=== PATIENT | female | born 1980 | race Caucasian/White ===

== ENCOUNTER 2018-11-16 18:35 | Inpatient (IN) ==
[2018-11-16] MEDS ORDERED: NS 1,000 ML, NS 1,000 ML IV ONE ×2 (19:34)
[2018-11-16] MEDS: NS 1,000 ML IV SCH ×2 (20:07→22:42)
[2018-11-16 20:11] LABS: BASO# 0.07 X1000 (0.0-0.2); BASO% 0.7 % (0.0-0.8); EOS# 0.46 X1000 (0.0-0.7); EOS% 4.3 % (0.0-10.0); HEMATOCRIT 42.5 % (37.0-47.0); HEMOGLOBIN 13.9 g/dL (12.0-16.0); IMM GRAN% 0.9 % (0.0-0.5); LYMPH# 2.66 X1000 (1.2-3.4); LYMPH% 25.1 % (20.5-51.1); MCH 29.6 PG (27-31); MCHC 32.7 g/dL (33-37); MCV 90.6 FL (81-99); MONO# 1.05 X1000 (0.11-0.59); MONO% 9.9 % (1.7-9.3); MPV 10.5 FL (7.4-10.4); NEUT# 6.26 X1000 (1.4-6.5); NEUT% 59.1 % (42.2-75.2); PLT 382 X1000 (130-400); RBC 4.69 XMIL (4.2-5.4); RDW 16.5 % (11.5-14.5)
[2018-11-16 20:31] LABS: ESTIMATED GFR > 60
[2018-11-16 20:34] LABS: AGAP 20; ALB/GLOB RATIO 1.1; ALBUMIN 3.7 g/dL (3.5-5.0); ALKALINE PHOSPHATASE 51 U/L (32-104); BUN 2 mg/dL (8-22); CALCIUM 9.5 mg/dL (8.8-10.2); CHLORIDE 102 mmol/L (98-107); COSMO 267; CREATININE 0.7 mg/dL (0.5-0.9); GLUCOSE 103 mg/dL (70-104); GOT 94 U/L (10-30); GPT 50 U/L (10-36); LIPASE 16 U/L (13-60); SODIUM 135 mmol/L (136-145); TCO2 13 mmol/L (25-35); TOTAL BILIRUBIN 0.61 mg/dL (0.20-1.00)
--- NOTE | 2018-11-16 21:28 | Diag Imaging Result Doc PS360 ---
EXAM: CT ABD/PELVIS W/IV CONT ONLY 11/16/2018 HISTORY: colitis TECHNIQUE: This exam was performed using automated exposure control, adjustment of mA or kV according to patient size, and/or use of iterative reconstruction technique. COMMENT: There is no evidence of acute disease in the visualized portion of the chest. There is hypodensity of the liver consistent with fatty change and/or cirrhosis. The spleen is enlarged measuring over 15.3 cm in AP dimension. The adrenal glands are within normal limits. The pancreas is unremarkable. The kidneys are without evidence of hydronephrosis or mass. There is no evidence of abdominal aortic aneurysm. There are some retroperitoneal nodes which are enlarged, one anterior to the aorta on image 62 measures over 15 mm and one aortocaval node present on image 67 measures over 13 mm. There is pericolic inflammation with mucosal thickening present in the transverse and ascending colon. This includes the splenic flexure. The small bowel is not distended. Pelvis: The appendix is not enlarged. The rectosigmoid colon is unremarkable. There has been hysterectomy. There is an apparent left ovarian cyst measuring almost 13 mm. There is no evidence of significant free fluid. The urinary bladder is unremarkable. There is a bone island in S1. There are degenerative disc changes with vacuum disc phenomenon at L5-S1 and bilateral spondylolysis at L5. No acute bony abnormalities are present. IMPRESSION: 1. Hepatic steatosis plus minus cirrhosis with splenomegaly. 2. Colitis, primarily involving the ascending and transverse colon. 3. Retroperitoneal adenopathy. 4. Left ovarian cyst. Electronically signed by Brody Bruce 11/16/2018 9:26 PM
[2018-11-16 22:54] LABS: URINE SOURCE CLEAN CATCH
[2018-11-16 22:58] LABS: BILIRUBIN URINE NEGATIVE (NEGATIVE); BLOOD URINE NEGATIVE (NEGATIVE); COLOR YELLOW; GLUCOSE URINE NEGATIVE (NEGATIVE); KETONE URINE >150 mg/dL (NEGATIVE); LEUKOCYTES URINE NEGATIVE (NEGATIVE); NITRITE URINE NEGATIVE (NEGATIVE); PH URINE 5.5; PROTEIN URINE 30 mg/dL (NEGATIVE); SP GRAVITY URINE 1.042; TURBIDITY URINE CLEAR (CLEAR); UR EPITHELIAL CELLS >10 /HPF (<10); URINE BACTERIA 2+ /HPF; URINE RBC <10 /HPF (<10); URINE WBC <10 /HPF (<10); UROBILINOGEN URINE NORMAL (NORMAL)
[2018-11-16] MEDS ORDERED: POTASSIUM CHLORIDE 20% LIQUID PO ONE (23:25)
[2018-11-17 00:15] LABS: ALLEN TEST YES; BE -17.1 mmoll (-3.0-3.0); BLOOD TYPE ARTERIAL; HCO3-(ACT) 11.6 mmoll (20.0-26.0); METHB 1.1 % (0.0-1.5); O2(CT) 17.2 mL/dL (15.0-23.0); O2HB 96.1 % (95.0-99.0); PCO2(98.6) 26 mmHg (35-45); PO2(98.6) 104 mmHg (60-100); SAMPLE BLOOD; SAO2 99.2 % (95.0-100.0); THB 12.6 g/dL (11.5-17.4)
[2018-11-17 00:17] LABS: MODALITY ROOM AIR; pH(98.6) 7.18 (7.35-7.45)
[2018-11-17] MEDS ORDERED: NS 1,000 ML IV ONE (01:17)
[2018-11-17] MEDS ORDERED: ZOFRAN IV ONE (01:21)
[2018-11-17] MEDS ORDERED: NS + KCL 20 MEQ 1,000 ML IV SCH (01:30)
[2018-11-17 01:46] LABS: MAGNESIUM 1.7 mg/dL (1.5-2.7); PHOSPHORUS 3.5 mg/dL (2.7-4.5)
[2018-11-17] MEDS ORDERED: TYLENOL PO PRN (02:42)
[2018-11-17] MEDS ORDERED: SOLU-MEDROL IV SCH (02:42)
--- NOTE | 2018-11-17 02:47 | HISTORY AND PHYSICAL ---
REASON FOR ADMISSION: Intractable nausea and vomiting apparently for 4 weeks. HISTORY OF PRESENT ILLNESS: Ms. Cornelia Boo is a 38-year-old woman with a past medical history of recurrent melanoma status post excision of the right arm x2. He has been off on Opdivo. She reports that for the last 2 months since she has been on Opdivo she has been having vomiting and diarrhea. Her last dose as I stated earlier was 4 weeks ago and since then her diarrhea and vomiting has gotten worse. She has been prescribed antibiotics and antiemetics tablet by Dr. Fong, but she has been unable to keep any of these down. Shesaw Dr. Light a week ago who did a colonoscopy and confirmed she had colitis. He to prescribed her oral medications and he says for the last 1 week she has not eaten anything nor kept anything down. She vomits about anywhere from 2 to 7 times a day regardless of whether she eats and also has loose stools which a couple of times have been darkish in color. She denies any overt abdominal pain, fever or chills however. No arthralgia or rash. No cardiorespiratory complaints. She came today because she was profoundly weak and dizzy. She has not started or changed any new medications. REVIEW OF SYSTEMS: A 12-system review was done and positive findings per HPI. ALLERGIES: Combivent, Pepto-Bismol and penicillins. HOME MEDICATIONS: She takes [place] 7.5 p.r.n. in the morning. SOCIAL HISTORY: Does not actively drink or smoke at this time. FAMILY HISTORY: Notable for lung cancer, pancreatic cancer, heart disease and diabetes. SURGICAL HISTORY: She has had 2 right upper extremity excisions for recurrent melanoma. She has had a , hysterectomy and also had a skin graft for the aforementioned excised area. LABORATORY DATA: White count 10,000, H H 13 and 42, platelets 382,000. Essentially unremarkable differential. Sodium 135, potassium 3.0, bicarbonate 13, anion gap is 20, BUN 2. Creatinine is 0.8, AST is 94, ALT 90, lipase and lactase are normal. Urinalysis, specific gravity 1.042, urine protein is 13, ketones greater than 150, with 2+ bacteria but greater than 10 epithelial cells. Blood gas, pH 7.17, pCO2 is 26, PO2 is 104, on room air. Abdominal CT showed hepatic steatosis plus or minus cirrhosis with splenomegaly, colitis primarily involving the ascending and transverse colon. Retroperitoneal adenopathy. Left ovarian cyst. PHYSICAL EXAMINATION: VITAL SIGNS: Blood pressure 127/82, heart rate is 109, respiratory rate 25, temperature is 98.9 degrees. GENERAL: She is an obese young woman who is not in acute distress. She is A and O x3. Normal mood and affect. HEENT: Head is normocephalic and atraumatic. Eyes: PERRLA. EOMI. She is anicteric. Not pale. Exam is grossly unremarkable except for mild xerostomia. No exudates or erythema. No sinus cyanosis. NECK: Short and thick. No JVD or carotid bruit. No thyromegaly. CHEST: Clear to auscultation with good air entry. CARDIOVASCULAR: First and second heart sounds heard. No gallops, murmurs or rubs. Rhythm is regular. ABDOMEN: Protuberant, soft, with mild epigastric tenderness but no rebound or guarding. Bowel sounds are surprisingly hypoactive. RECTAL: Deferred. EXTREMITIES: The patient has significantly diminished distal pulse volumes are symmetrical and radicular regular. No edema, clubbing or cyanosis. NEUEROLOGIC: No gross focal deficits. SKIN: Intact. No breakdown, lesions or erythema. MUSCULOSKELETAL: Exam is grossly normal. ASSESSMENT: 1. Immune mediated colitis causing intractable nausea, vomiting and diarrhea probably secondary to Opdivo. 2. Severe starvation ketoacidosis, metabolic anion gap acidosis. 3. Dehydration. 4. Hypokalemia. PLAN: The patient has been aggressively resuscitated of crystalloids, and subsequentlyintravenous fluids of potassium chloride. Hopefully this should correct the ketosis noted fromstarvation secondary to effects of colitis causing nausea and vomiting. We will start the patienton very low-dose steroids and empiric antibiotics and see if this can arrest symptoms. At thetime that I left the room the patient was now complaining of diffuse mild abdominal pain. ConsultDrArsenio Fong for further intervention,i.e.further intervention and management of presumed Opdivo-induced colitis. Check magnesium and phosphorus. cc: Daniel Ly MD [facility]
[2018-11-17] MEDS: LEVAQUIN 500 MG/D5W 500 MG/100 ML IVPB IV SCH (03:41)
[2018-11-17] MEDS: FLAGYL 500 MG/NS 500 MG/100 ML IVPB IV SCH ×4 (03:41→22:35)
[2018-11-17] MEDS: LOVENOX SUBQ SCH (03:42)
[2018-11-17] MEDS: NS + KCL 40 MEQ 1,000 ML IV SCH ×2 (03:45→16:37)
[2018-11-17] MEDS: ZOFRAN IV PRN ×3 (12:57→22:29)
[2018-11-17 15:58] LABS: AGAP 22; BUN 2 mg/dL (8-22); CALCIUM 9.8 mg/dL (8.8-10.2); CHLORIDE 109 mmol/L (98-107); COSMO 277; CREATININE 0.7 mg/dL (0.5-0.9); ESTIMATED GFR > 60; GLUCOSE 152 mg/dL (70-104); POTASSIUM 2.4 mmol/L (3.5-5.1); SODIUM 139 mmol/L (136-145); TCO2 8 mmol/L (25-35)
[2018-11-17] MEDS: SOLU-MEDROL IV SCH (16:37)
[2018-11-17] MEDS ORDERED: NS + KCL 40 MEQ 1,000 ML IV SCH (17:11)
[2018-11-17] MEDS: PROTONIX IV SCH (18:45)
--- NOTE | 2018-11-17 19:53 | HEMO/ONC CONSULTATION ---
DATE: 11/17/2018 REQUESTING PHYSICIAN: Hospitalist service. REASON FOR CONSULTATION: Consultation is for melanoma, patient known. HISTORY OF PRESENT ILLNESS: Ms. Boo is a 38-year-old, female who is known to us as we are currently treating her for recurrent metastatic melanoma. She is currently receiving Opdivo though she has not received Opdivo now in about 1 month. She has been having some nausea and vomiting really throughout her whole history at our clinic. She did have an episode of diarrhea while on Opdivo pretty early on in treatment, which was thought just to be related to her IBS. Opdivo was held and then we were able to resume without we further incident. A couple weeks ago, she was in the office complaining of increased nausea and vomiting as well as diarrhea that had been going on for a couple weeks prior to her presentation at that time. We held her Opdivo at that point. I gave her low-dose steroids with a Medrol Dosepak and Pepcid as we were unsure if she was just having again a flare-up of IBS considering she is having associated nausea and vomiting. We also sent her to Dr. Light who evaluated her and did a colonoscopy which showed that she had colitis. She is an office yesterday reporting that Dr. Light placed on antibiotics, but she was unable to keep any of the antibiotics down due to her nausea and vomiting. We gave her IV fluids and IV antiemetics and advised her to start her antibiotics when she got home. She did contact our office later and then reported that she is quite weak and we advised her to come to the emergency department. She has now been admitted to the hospital for further treatment. She is currently on IV fluids as well as IV steroid and antibiotics. PAST MEDICAL HISTORY: 1. Melanoma, metastatic and currently receiving Opdivo with last treatment given on 10/20/2018. 2. Hypothyroidism. 3. Migraines. 4. Hypertension. SURGICAL HISTORY: 1. 2000 and 2014. 2. Hysterectomy 2008. 3. Melanoma resections 2015 and 2018. SOCIAL HISTORY: Patient is and lives with her and children. They live in [place]. She is an every day smoker and denies any illicit drug or alcohol use at this time. FAMILY HISTORY: Positive for heart disease and also pancreatic cancer in her father. She also has an extensive history of other cancers on her maternal side including, lung, stomach, melanoma, colon and bone cancer. On her father's side, she has a family history of breast, ovarian, pancreatic, melanoma and lung cancers. REVIEW OF SYSTEMS: Twelve point review of systems has been completed negative except for was expressed in the HPI. PHYSICAL EXAMINATION: Vital Signs: Today temperature 98.4 degrees, heart rate 119, respirations 20, blood pressure 124/78, O2 saturation 98% on room air. General: This is a well-nourished well- developed female who appears acutely ill who is lying in the hospital bed. No one is at bedside. HEENT: Head normocephalic, atraumatic. Eyes: Pupils equal, round, reactive. Ears, nose, throat, neck, and mouth: Oral mucosa appears to be dry. Gross auditory acuity is intact. Cardiovascular: Tachycardia noted, but regular rhythm. Respiratory: Chest is clear. No respiratory effort. Abdomen: Soft, with diffuse tenderness. Positive bowel sounds noted. Musculoskeletal: No bony abnormalities. Extremities: Some trace bilateral extremity edema. Neurologic: Patient is alert and oriented. No focal motor deficits. LABS AND STUDIES: White blood cells 10.60 hemoglobin 13.9, hematocrit 42.5 platelet count 382,000. Sodium 139, potassium 2.4, chloride 109, CO2 8, BUN 2, creatinine 0.7, glucose 152, magnesium 1.7. Also CT of abdomen and pelvis done on 11/16/2018 shows colitis, primarily involving the ascending and transverse colon. Retroperitoneal adenopathy. Hepatic steatosis, plus or minus cirrhosis with splenomegaly. ASSESSMENT AND PLAN: 1. Metastatic melanoma. Opdivo is currently on hold and will continue to be on hold while the patient is in the hospital. Given her colitis, we may have to change treatments, but we will decide that once she is out and better as an outpatient in our office. 2. Colitis. Agree with treatment with antibiotics, IV fluids and we are going to adjust her IV steroids a little bit. She needs to be on about 1 mg/kg of prednisone or equivalent. 3. Nausea and vomiting. Continue IV antiemetics as needed. 4. Deep vein thrombosis prophylaxis. Agree with Lovenox q.24 hours. 5. With electrolyte abnormalities. Continue to correct per the primary team. We want to thank you for consulting us on Ms. Boo. We will continue to follow along while she is in the hospital adjust our treatment plan per her hospital course. Dictated by JOHNNY Barriga for Aurelio Rodriguez MD cc: Aurelio Rodriguez MD
[2018-11-18] MEDS: POTASSIUM CHLORIDE 40 MEQ in NS 1,000 ML IV SCH ×2 (00:50→05:33)
[2018-11-18] MEDS: LOVENOX SUBQ SCH (03:30)
[2018-11-18] MEDS: FLAGYL 500 MG/NS 500 MG/100 ML IVPB IV SCH ×5 (03:57→22:41)
[2018-11-18] MEDS: LEVAQUIN 500 MG/D5W 500 MG/100 ML IVPB IV SCH (03:57)
[2018-11-18] MEDS: SODIUM CHLORIDE 0.9% INJ SCH ×2 (05:33→17:58)
[2018-11-18] MEDS: PROTONIX IV SCH ×2 (05:33→17:58)
[2018-11-18 06:46] LABS: BASO# 0.03 X1000 (0.0-0.2); BASO% 0.2 % (0.0-0.8); EOS# 0.02 X1000 (0.0-0.7); EOS% 0.1 % (0.0-10.0); HEMATOCRIT 40.2 % (37.0-47.0); HEMOGLOBIN 12.8 g/dL (12.0-16.0); IMM GRAN% 2.9 % (0.0-0.5); LYMPH# 1.21 X1000 (1.2-3.4); LYMPH% 7.1 % (20.5-51.1); MCH 29.3 PG (27-31); MCHC 31.8 g/dL (33-37); MONO% 4.1 % (1.7-9.3); NEUT# 14.56 X1000 (1.4-6.5); NEUT% 85.6 % (42.2-75.2); PLT 380 X1000 (130-400); RBC 4.37 XMIL (4.2-5.4); RDW 16.8 % (11.5-14.5); WBC 17.02 X1000 (4.8-10.8)
[2018-11-18 07:04] LABS: AGAP 21; ALB/GLOB RATIO 1.4; ALKALINE PHOSPHATASE 49 U/L (32-104); BUN 2 mg/dL (8-22); CALCIUM 9.3 mg/dL (8.8-10.2); CHLORIDE 113 mmol/L (98-107); COSMO 285; CREATININE 0.7 mg/dL (0.5-0.9); ESTIMATED GFR > 60; GLUCOSE 199 mg/dL (70-104); GOT 37 U/L (10-30); GPT 33 U/L (10-36); MAGNESIUM 1.9 mg/dL (1.5-2.7); SODIUM 142 mmol/L (136-145); TCO2 8 mmol/L (25-35); TOTAL BILIRUBIN 0.37 mg/dL (0.20-1.00); TOTAL PROTEIN 6.9 g/dL (6.3-8.3)
[2018-11-18 07:06] LABS: POTASSIUM 2.1 mmol/L (3.5-5.1)
[2018-11-18] MEDS: SOLU-MEDROL IV SCH ×2 (10:10→16:09)
[2018-11-18] MEDS: POTASSIUM CHLORIDE 20 MEQ/SWI 20 MEQ/100 ML IVPB IV SCH ×2 (10:32→13:46)
[2018-11-18] MEDS: SODIUM BICARBONATE PO SCH ×2 (13:49→20:14)
--- NOTE | 2018-11-18 13:57 | PROGRESS NOTE ---
DATE: 11/18/2018 SUBJECTIVE: This patient is resting comfortably in bed. She is not complaining of too much belly pain. She is still having multiple bowel movements. The dose of the steroids has been adjusted by Hematology/Oncology Department. We will continue with antibiotics. Potassium level is low. We will replace the potassium. OBJECTIVE: Vital Signs: Temperature 98.6 degrees, pulse 116, respiratory rate 20, blood pressure 147/75, and oxygen saturation 99 on room air. HEENT: Head normocephalic. No trauma. PERRLA. Neck: Supple. No JVD. No masses. Central trachea. Chest: Clear to auscultation. No wheezing. No rales. Abdomen: Soft. Mild tenderness to palpation at the level of the periumbilical area. Positive bowel sounds. Slightly distended. Extremities: No edema. No clubbing. No cyanosis. Neurological: The patient is alert and oriented x3, a little bit sleepy today though. No focal deficits, but generalized weakness. LABORATORY: WBC 17, hemoglobin 12.8, hematocrit 40.2, and platelets 380,000. Sodium 142, potassium 2.1, chloride 113, bicarbonate 8, BUN 2, and creatinine 0.7. Glucose 199. Calcium 9.3. AST 37, ALT 33, alkaline phosphatase 49, and TSH 0.14. ASSESSMENT AND PLAN: 1. Immune mediated colitis causing intractable nausea, vomiting and diarrhea, likely secondary to Opdivo. This patient has been placed on steroids, antibiotics and she is getting IV fluids. We will continue with same management. Hematology/Oncology Department on board. 2. Severe starvation ketosis with anion gap metabolic acidosis. I will give her some sodium bicarb by mouth to see how she does. Bicarb level is low. 3. Dehydration resolved. Continue with the same management. 4. Severe hypokalemia. I will continue replacing the potassium. Magnesium level is within normal limits at 1.9. 5. Hypothyroidism. Her TSH level is low. I will get a new TSH level maybe in a couple of more days. cc: Vinnie Delatorre MD
--- NOTE | 2018-11-18 15:08 | HEMO/ONC PROGRESS NOTE ---
DATE: 11/18/2018 SUBJECTIVE: Ms. Cornelia Boo is in her hospital bed, in no acute distress. OBJECTIVE: Vital signs: Temperature 97.9 degrees, heart rate 60, respirations 18, blood pressure 150/72, O2 saturation 97% on room air. Cardiovascular: S1, S2 heard. No murmurs, gallops, rubs appreciated. Respiratory: Chest is clear to auscultation. Gastrointestinal: Abdomen is soft. Extremities: No edema. LABORATORY DATA AND STUDIES: White blood cells 17.02, hemoglobin 12.8. Sodium 142, potassium 2.1. ASSESSMENT: 1. Metastatic melanoma. Opdivo is currently on hold. 2. Colitis. The patient is on IV antibiotics as well as IV steroids. Seems to be improving. 3. Hypokalemia. Repletion per the primary team. We will sign off for the weekend and be available as needed. We will resume regular followup on Wednesday. Dictated by JOHNNY Barriga for Edita Fong MD cc: Edita Fong MD I have seen and examined the patient and agree with the above note which reflects my history, physical examination, assessment and plan. Edita MOREL
--- NOTE | 2018-11-18 15:12 | HEMO/ONC PROGRESS NOTE ---
DATE: 11/18/2018 INCOMPLETE REPORT-- DICTATION STARTS HERE. SUBJECTIVE: Ms. Boo is lying in her hospital bed. Her daughter is at bedside. She is in no acute distress. OBJECTIVE: Vital Signs: Temperature 97.9 degrees, heart rate 60, respirations 18, blood pressure 150/72, O2 saturation 97% on room air. CV: S1, S2 heard. No murmurs, gallops, rubs appreciated. Respiratory: Chest clear. Normal respiratory effort. Gastrointestinal: Abdomen is soft. Positive bowel sounds. Extremities: No edema. LABORATORY: White blood cells 17.02, hemoglobin 12.8, platelet count 380. Sodium 142, potassium 2.1, chloride 113, CO2 8. BUN 2, creatinine 0.7, glucose 199. ASSESSMENT/PLAN: 1. Metastatic melanoma. Patient has been receiving Opdivo. Her last dose... INCOMPLETE REPORT-- DICTATION ENDS HERE. Dictated by JOHNNY Barriga for Edita Fong MD cc: Edita Fong MD See rest of dicatation - separately transcribed. I have seen and examined the patient and agree with the above note which reflects my history, physical examination, assessment and plan. Edita Fong MD [facility]
[2018-11-18] MEDS: POTASSIUM CHLORIDE 40 MEQ in 1/2 NS 1,000 ML IV SCH (15:48)
[2018-11-18 19:09] LABS: AGAP 16; BUN 4 mg/dL (8-22); CALCIUM 9.2 mg/dL (8.8-10.2); CHLORIDE 116 mmol/L (98-107); COSMO 295; CREATININE 0.7 mg/dL (0.5-0.9); ESTIMATED GFR > 60; GLUCOSE 298 mg/dL (70-104); POTASSIUM 2.5 mmol/L (3.5-5.1); SODIUM 144 mmol/L (136-145); TCO2 12 mmol/L (25-35)
[2018-11-18] MEDS ORDERED: KLOR-CON PO ONE (19:54)
[2018-11-19 02:02] LABS: AGAP 16; BUN 6 mg/dL (8-22); CALCIUM 9.4 mg/dL (8.8-10.2); CHLORIDE 111 mmol/L (98-107); COSMO 289; CREATININE 0.7 mg/dL (0.5-0.9); ESTIMATED GFR > 60; GLUCOSE 256 mg/dL (70-104); POTASSIUM 2.9 mmol/L (3.5-5.1); SODIUM 142 mmol/L (136-145); TCO2 15 mmol/L (25-35)
[2018-11-19] MEDS: POTASSIUM CHLORIDE 40 MEQ in 1/2 NS 1,000 ML IV SCH (02:55)
[2018-11-19] MEDS: LEVAQUIN 500 MG/D5W 500 MG/100 ML IVPB IV SCH (02:55)
[2018-11-19] MEDS: LOVENOX SUBQ SCH (03:47)
[2018-11-19] MEDS: FLAGYL 500 MG/NS 500 MG/100 ML IVPB IV SCH ×2 (04:24→10:03)
[2018-11-19] MEDS: PROTONIX IV SCH (05:13)
[2018-11-19 07:47] LABS: BASO# 0.01 X1000 (0.0-0.2); BASO% 0.1 % (0.0-0.8); EOS# 0.01 X1000 (0.0-0.7); EOS% 0.1 % (0.0-10.0); HEMATOCRIT 36.1 % (37.0-47.0); HEMOGLOBIN 12.1 g/dL (12.0-16.0); IMM GRAN% 0.9 % (0.0-0.5); LYMPH# 0.79 X1000 (1.2-3.4); LYMPH% 6.9 % (20.5-51.1); MCH 29.7 PG (27-31); MCHC 33.5 g/dL (33-37); MCV 88.5 FL (81-99); MONO# 0.73 X1000 (0.11-0.59); MONO% 6.4 % (1.7-9.3); MPV 10.2 FL (7.4-10.4); NEUT# 9.75 X1000 (1.4-6.5); NEUT% 85.6 % (42.2-75.2); PLT 334 X1000 (130-400); RBC 4.08 XMIL (4.2-5.4); RDW 16.8 % (11.5-14.5); WBC 11.39 X1000 (4.8-10.8)
[2018-11-19 07:58] LABS: AGAP 16; ALB/GLOB RATIO 1.3; ALBUMIN 3.8 g/dL (3.5-5.0); ALKALINE PHOSPHATASE 53 U/L (32-104); BUN 7 mg/dL (8-22); CALCIUM 9.5 mg/dL (8.8-10.2); CHLORIDE 109 mmol/L (98-107); COSMO 288; CREATININE 0.7 mg/dL (0.5-0.9); ESTIMATED GFR > 60; GLUCOSE 225 mg/dL (70-104); GOT 19 U/L (10-30); GPT 25 U/L (10-36); MAGNESIUM 1.6 mg/dL (1.5-2.7); PHOSPHORUS 1.5 mg/dL (2.7-4.5); POTASSIUM 3.2 mmol/L (3.5-5.1); SODIUM 142 mmol/L (136-145); TCO2 17 mmol/L (25-35); TOTAL BILIRUBIN 0.41 mg/dL (0.20-1.00); TOTAL PROTEIN 6.7 g/dL (6.3-8.3)
[2018-11-19 08:48] LABS: BANDS 2 % (0-1); LYMPHS 7 % (21-51); MONO 5 % (1-9); SEGS 86 % (42-75)
[2018-11-19 08:49] LABS: POLYCHROM 1+
[2018-11-19] MEDS: SOLU-MEDROL IV SCH (10:08)
[2018-11-19] MEDS: SODIUM BICARBONATE PO SCH (10:10)
[2018-11-19 11:35] VITALS: BP 139/95
[2018-11-19] MEDS ORDERED: MAGNESIUM SULFATE 2 GM/S.W.I. 2 GM/50 ML IVPB IV ONE (12:00)
[2018-11-19] MEDS ORDERED: POTASSIUM PHOSPHATE 30 MMOL in NS 250 ML IV ONE (13:00)
--- NOTE | 2018-11-19 19:44 | DISCHARGE SUMMARY ---
ADMISSION DATE: 11/17/2018 DISCHARGE DATE: 11/19/2018 DISCHARGE DIAGNOSES: 1. Immune mediated colitis causing intractable nausea, vomiting and diarrhea, likely secondary to Opdivo. 2. Severe starvation ketosis with anion gap metabolic acidosis. 3. Dehydration, resolved. 4. Severe hypokalemia. 5. Hypothyroidism. This patient left AMA, I had an extensive conversation with the patient and the at the bedside but she decided to leave [facility] and follow up with Dr. Fong next week. PROCEDURES PERFORMED: Abdomen and pelvis CT scan dated 11/16/2018. Impression hepatic steatosis plus-minus cirrhosis with splenomegaly. Colitis primarily involving the ascending and transverse colon. Retroperitoneal adenopathy. Left ovarian cyst. HOSPITAL COURSE: A 38-year-old female with a past medical history of recurrent melanoma status post excision x2 on the right arm, she has been on Opdivo recently, she reported that for the past couple months since she has been on Opdivo she has been having nausea, vomiting and diarrhea. She was admitted on 11/17/2018 and as per the patient the nausea, vomiting, diarrhea is getting worse. She was prescribed with antibiotics and antiemetics tablets by Dr. Fong but she was being able to keep anything down. As per the patient she has been vomiting anywhere from 2 to 7 times a day regardless of whether she eats and also has loose stools which a couple times has been darkish in color, she denies fever or chills. No rash. No cardiac, respiratory complaints but she has been really weak and dizzy. CT scan of the abdomen showed colitis and we believe is likely secondary to this treatment with Opdivo, we started this patient on steroids and also antibiotics levofloxacin and Flagyl, today the 3rd day of hospitalization and she is still having some bowel movements which are liquid but brown, today just 1, she is feeling better but she states that she wants to go home. She is signing the AMA paperwork but they have requested medications to go home and I have agreed with that because I do not want this patient to get worse so I will continue with the same antibiotics that she was getting from this hospitalization. She is still having metabolic acidosis, her bicarb level still low and I will continue to replace with pills, Hematology/Oncology Department evaluated this patient and they have recommended to treat this patient with prednisone 1 mg/kg so I will go ahead and give her a 75% of the dose in the morning and 25% in the afternoon. I will try to contact this coming Wednesday [facility] to tell them that they need to call the patient and make an appointment for this week to get a new lab work since this patient also has been having electrolytes imbalance especially hypokalemia which was severe, today was better at 3.2. I have replaced the potassium today again. I have replaced the phosphorus as well. I had a conversation with both the patient and her at the bedside. I explained in detail all the lab work and the treatment and they agreed to go AMA anyway. I told them that they need to follow up with the Cancer Center this coming week and they need to call the office this Wednesday, she is tolerating p.o. now and she is not dehydrated. She received plenty of IV fluids here. WBC better from 17 to 11. I wanted to check again her pH level but she refused today. DISCHARGE MEDICATIONS: I will continue with her [place] 7.5 p.o. t.i.d. as needed, levofloxacin 500 mg p.o. daily to complete 10 days, levothyroxine 1 tablet p.o. q.a.m. 50 mcg, Flagyl 500 mg p.o. q.8 hours to complete 10 days, prednisone 75 mg p.o. q.a.m. and 25 mg p.o. nightly, pantoprazole 40 mg p.o. b.i.d., sodium bicarbonate 350 mg p.o. b.i.d. Again this patient left AMA, I told the patient and the at the bedside to call the abdomen to call Dr. Fong's office this Wednesday to make an appointment for this week so they can check on her electrolytes and her general condition. TIME SPENT: Discharging this patient and discussing with the family around 40 minutes. cc: Vinnie Delatorre MD [facility]
== END 2018-11-19 13:30 | disposition left against medical advice (07) | DRG 394 ==
LOC: ED 18:35 → 4N 11-17 02:09 → SUATTDRO 11-17 02:09
PROVIDERS: ATTEND Internal Medicine
CPT/HCPCS: 74177; 80048; 80053; 81001; 82805; 83605; 83690; 83735; 83930; 84100; 84443; 85025; 87088; 94760; 94761; 96361; 96374; 97162; 99285; A9270; C9113; J1956; J2405; J2920; J2930; J3480; J7030; Q9967; S0030; S0164

== ENCOUNTER 2018-11-24 12:03 | Observation (INO) ==
--- NOTE | 2018-11-24 12:17 | EKG Report ---
Test Performed on : 11/24/2018 12:12:19 PM Test Reason : numbness Blood Pressure : / mmHG Vent. Rate : 084 BPM Atrial Rate : 084 BPM P-R Int : 144 ms QRS Dur : 088 ms QT Int : 480 ms P-R-T Axes : 060 024 -05 degrees QTc Int : 567 ms Normal sinus rhythm. Nonspecific ST and T wave abnormality Prolonged QT Abnormal ECG When compared with ECG of 12-NOV-2015 15:07, ST now depressed in Anterior leads T wave inversion now evident in Anterior leads QT has lengthened Unconfirmed Result
[2018-11-24] MEDS ORDERED: NS 1,000 ML IV ONE (14:20)
[2018-11-24 14:43] LABS: BASO# 0.03 X1000 (0.0-0.2); BASO% 0.2 % (0.0-0.8); EOS# 0.51 X1000 (0.0-0.7); EOS% 2.8 % (0.0-10.0); HEMATOCRIT 40.9 % (37.0-47.0); HEMOGLOBIN 13.9 g/dL (12.0-16.0); IMM GRAN# 0.15 X1000 (0.0-0.04); IMM GRAN% 0.8 % (0.0-0.5); LYMPH# 3.71 X1000 (1.2-3.4); LYMPH% 20.3 % (20.5-51.1); MCH 29.7 PG (27-31); MCV 87.4 FL (81-99); MONO# 1.26 X1000 (0.11-0.59); MONO% 6.9 % (1.7-9.3); MPV 9.9 FL (7.4-10.4); NEUT# 12.64 X1000 (1.4-6.5); PLT 320 X1000 (130-400); RBC 4.68 XMIL (4.2-5.4); RDW 15.5 % (11.5-14.5)
[2018-11-24 15:29] LABS: AGAP 13; ALB/GLOB RATIO 1.4; ALBUMIN 3.1 g/dL (3.5-5.0); ALKALINE PHOSPHATASE 46 U/L (32-104); BUN 4 mg/dL (8-22); CALCIUM 8.3 mg/dL (8.8-10.2); CHLORIDE 95 mmol/L (98-107); COSMO 271; CREATININE 0.6 mg/dL (0.5-0.9); ESTIMATED GFR > 60; GLUCOSE 99 mg/dL (70-104); GOT 76 U/L (10-30); GPT 40 U/L (10-36); POTASSIUM 2.1 mmol/L (3.5-5.1); SODIUM 137 mmol/L (136-145); TCO2 29 mmol/L (25-35); TOTAL BILIRUBIN 0.62 mg/dL (0.20-1.00); TOTAL PROTEIN 5.3 g/dL (6.3-8.3)
[2018-11-24] MEDS ORDERED: KLOR-CON PO ONE (15:32)
[2018-11-24 15:53] LABS: URINE SOURCE CLEAN CATCH
[2018-11-24 15:56] LABS: BILIRUBIN URINE NEGATIVE (NEGATIVE); BLOOD URINE NEGATIVE (NEGATIVE); COLOR YELLOW; GLUCOSE URINE NEGATIVE (NEGATIVE); KETONE URINE NEGATIVE (NEGATIVE); LEUKOCYTES URINE NEGATIVE (NEGATIVE); NITRITE URINE NEGATIVE (NEGATIVE); PROTEIN URINE NEGATIVE (NEGATIVE); TURBIDITY URINE CLEAR (CLEAR); UR EPITHELIAL CELLS <10 /HPF (<10); URINE BACTERIA NEGATIVE /HPF; URINE RBC <10 /HPF (<10); URINE WBC <10 /HPF (<10); UROBILINOGEN URINE NORMAL (NORMAL)
--- NOTE | 2018-11-24 16:28 | Diag Imaging Result Doc PS360 ---
EXAM: CT ABD/PELVIS W/IV CONT ONLY INDICATION: colitis TECHNIQUE: This exam was performed using automated exposure control, adjustment of mA or kV according to patient size, and/or use of iterative reconstruction technique. COMPARISON: 11/16/2018 FINDINGS: There has been a prior cholecystectomy. There is moderate diffuse hepatic steatosis. The spleen is somewhat prominent but stable. The pancreas, adrenal glands, kidneys, and urinary bladder are grossly unremarkable. There has been a prior hysterectomy. The left ovarian cyst seen previously has increased in size and there has been development of a another larger left ovarian cyst measuring up to 5.4 cm. The inflammatory stranding associated with the colon seen on the previous study has largely resolved. There is only very minimal residual stranding near the hepatic flexure of the colon. There is no evidence of bowel obstruction. The remainder of the GI tract is essentially unremarkable. IMPRESSION: 1.Near resolution of the inflammatory stranding associated with the colon that was seen on the previous study with only a small amount of residual stranding near the hepatic flexure on the right. 2.Increase in size of the left ovarian cyst seen on the previous study and development of a larger left ovarian cyst measuring up to 5.4 cm. 3.Otherwise, the abdomen and pelvis are essentially stable. Electronically signed by Bryant Villegas 11/24/2018 4:26 PM
--- NOTE | 2018-11-24 16:42 | PROVIDER DOCUMENTATION ---
This chart was entered by Alejandra Zeng Scribe, acting as scribe for Yvonne Riggs MD. HPI-General Adult - General Chief Complaint: Numbness Stated Complaint: GOING NUMB Time Seen by Provider: 11/24/18 13:18 Source: patient Allergies/Adverse Reactions: Patient Allergies Allergy/AdvReac Type Severity Reaction Status Date / Time ipratropium bromide * Allergy SHORTNESS Verified 11/17/18 02:16 [From Combivent] OF BREATH Penicillins Allergy SHORTNESS Verified 11/17/18 02:16 OF BREATH bismuth subsalicylate AdvReac RASH Verified 11/17/18 02:16 [From Pepto-Bismol] Home Medications: Home Medication List Medication Instructions Recorded Confirmed Last Taken Type Hydrocodone/Acetaminophen [[place] 1 tab PO TID PRN 11/17/18 11/17/18 Unknown History 7.5-325 Tablet] Levothyroxine [Synthroid] 1 tab PO QAM 11/17/18 11/17/18 Unknown History Levofloxacin [Levaquin] 500 mg PO DAILY #8 tab 11/19/18 Unknown Rx Metronidazole [Flagyl] 500 mg PO Q8H #42 tab 11/19/18 Unknown Rx Ondansetron [Ondansetron Odt] 4 mg PO Q6H #10 tab.rapdis 11/19/18 Unknown Rx Pantoprazole Sodium [Protonix] 40 mg PO BID #60 tablet. 11/19/18 Unknown Rx Prednisone 25 mg PO QPM #15 tab 11/19/18 Unknown Rx Prednisone 75 mg PO QAM #15 tab 11/19/18 Unknown Rx Sodium Bicarbonate 650 mg PO BID #30 tab 11/19/18 Unknown Rx - History of Present Illness -Gen Adult Nature of Presenting Problems: Patient is a 38 year old female who presents with multiple complaints. Patient states symptoms of chest pain, back pain, abdominal pain, sore throat, tongue pain, and numbness to right arm and chest. Reports being diagnosed with colitis last week. Denies nausea, vomiting, fever and chills. Location of Pain/Injury: reports: mouth (tongue), chest, abdomen, back Pain Radiation: reports: no radiation Quality of Pain: reports: aching Severity: reports: mild Onset/Duration: reports: last night Timing: reports: still present Context/Activities at Onset: reports: light activity Associated Symptoms: reports: EENT symptoms (sore throat), other (numbness to right arm and chest) Similar Symptoms Previously?: Yes Recently seen or treated by another doctor?: Yes Review of Systems - Adult - REVIEW OF SYSTEMS - ADULT Constitutional: reports: no symptoms reported. denies: chills, fever, fatique Eyes: reports: no symptoms reported Ears, Nose, Mouth & Throat: reports: see HPI, mouth/dental pain (tongue), throat pain. denies: ear pain, nose pain Cardiovascular: reports: see HPI, chest pain. denies: heart murmur, palpitations Respiratory: reports: no symptoms reported Gastrointestinal: reports: see HPI, abdominal pain. denies: diarrhea, nausea, vomiting Genitourinary: reports: no symptoms reported Musculoskeletal: reports: see HPI, back pain. denies: muscle aches, neck pain Integumentary: reports: no symptoms reported Neurological: reports: see HPI, numbness (right arm and chest). denies: d izziness/vertigo, headache/migraines Psychiatric: reports: no symptoms reported Endocrine: reports: no symptoms reported Hematologic/Lymphatic: reports: no symptoms reported Allergic/Immunologic: reports: no symptoms reported All Other Systems: Reviewed and Negative Past History - Adult - PAST MEDICAL HISTORY-ADULT Review of Records: reports: Old Records Reviewed, Nursing Assessment Review, Medications Reviewed, Social history reviewed & non-contributory. Major Childhood Illnesses: reports: denies history Cardiovascular: reports: HTN, hyperlipidemia. denies: cardiac disease Respiratory: reports: denies history Gastrointestinal: reports: colitis, GERD, other (chronic diarrhea) Obstetrical/Gynecological: reports: denies history Genitourinary: reports: denies history Musculoskeletal: reports: denies history Neurological: reports: denies history Psychiatric: reports: depression Endocrine/Immune: reports: thyroid disorder Other Conditions: reports: other cancer - PRIOR SURGERIES/PROCEDURES Surgical/Procedure History: reports: cholecystectomy, hysterectomy, , other (melanoma removal ) - IMMUNIZATION STATUS Childhood Immunizations: See Nurse Assessment Flu Vaccine: See Nurse Assessment - FAMILY HISTORY Family History: reviewed, not pertinent - SOCIAL HISTORY Smoking: cigarettes (former) Substance Use: denies Living Situation: family Physical Exam-General - PHYSICAL EXAM-ADULT Initial Vital Signs Reviewed: Yes - CONSTITUTIONAL General Appearance: alert, no apparent distress. negative: lethargic, slow to respond - HEAD, EARS, NOSE, MOUTH & THROAT HENMT: normocephalic/atraumatic, pharynx normal, dental decay, other (dry mucous membranes). negative: angioedema - RESPIRATORY Respiratory: chest non-tender, lungs clear, normal breath sounds. negative: crackles, rhonchi, wheezing - CARDIOVASCULAR Cardiovascular: normal peripheral pulses, regular rate, rhythm. negative: tachycardia, systolic murmur - GASTROINTESTINAL (ABDOMEN) Abdominal Exam: normal bowel sounds, non tender, soft. negative: guarding, rebound - MUSCULOSKELETAL Extremity: non-tender, normal inspection. negative: deformity, erythema, swelling - SKIN Integumentary: normal color, normal turgor, warm/dry. negative: cyanosis, ecchymosis, erythema, jaundice - NEUROLOGIC Neurologic: grossly normal. negative: aphasia, facial droop - PSYCHIATRIC Psych/Mental Status: normal mood/affect, oriented x 3. negative: anxious Progress - PLAN OF CARE/RESULTS Progress/Plan/Lab Results: Vital Signs - 8 hr 11/24/18 12:04 Temperature 98.0 F Pulse Rate 84 Respiratory Rate 18 Blood Pressure 118/71 O2 Sat by Pulse Oximetry 98 Orders Category Date Time Status EKG [EKG] Stat Ther 11/24/18 12:10 Draft Result Diagrams: 11/24/18 13:19 11/24/18 13:19 - EKG 1 Time of EKG reading by physician:: 12:12 EKG Read and Signed by:: Yvonne Riggs EKG Interpretation (*Must complete 3 of following elements*): Abnormal Rate: 84 Rhythm: normal sinus rhythm [place]: normal [place] Interval: normal Comments: nonspecific ST and T wave abnormality; prolonged QT - CT/MRI 1 CT Study: Abdomen, Pelvis Impression: See EMR Report (EXAM: CT ABD/PELVIS W/IV CONT ONLY INDICATION: colitis TECHNIQUE: This exam was performed using automated exposure control, adjustment of mA or kV according to patient size, and/or use of iterative reconstruction technique. COMPARISON: 11/16/2018 FINDINGS: There has been a prior cholecystectomy. There is moderate diffuse hepatic steatosis. The spleen is somewhat prominent but stable. The pancreas, adrenal glands, kidneys, and urinary bladder are grossly unremarkable. There has been a prior hysterectomy. The left ovarian cyst seen previously has increased in size and there has been development of a another larger left ovarian cyst measuring up to 5.4 cm. The inflammatory stranding associated with the colon seen on the previous study has largely resolved. There is only very minimal residual stranding near the hepatic flexure of the colon. There is no evidence of bowel obstruction. The remainder of the GI tract is essentially unremarkable. IMPRESSION: 1.Near resolution of the inflammatory stranding associated with the colon that was seen on the previous study with only a small amount of residual stranding near the hepatic flexure on the right. 2.Increase in size of the left ovarian cyst seen on the pr evious study and development of a larger left ovarian cyst measuring up to 5.4 cm. 3.Otherwise, the abdomen and pelvis are essentially stable. Electronically signed by Bryant Villegas 11/24/2018 4:26 PM 11/24/18 1626 Interpreting Physician: Bryant Villegas MD Dictated Date/Time: 11/24/18 1620 cc: Yvonne Riggs MD; Milton Crawford) - CONSULTS/PCP/HOSPITALIST Notification #1 *Consult/PCP/Hospitalist*: ICT DEVELOPMENT MANAGER for Hospitalist Time Discussed: 16:40 Reason/Comments: Dr. Riggs consulted with ICT DEVELOPMENT MANAGER about patient. Departure - Departure Date of Disposition Decision: 11/24/18 Time of Disposition Decision: 16:40 DIAGNOSIS: Colitis, Hypokalemia Disposition: ADMITTED INPATIENT 09 Certified Medical Emergency: Emergent Condition: Fair Referrals and Follow-Ups: Milton Crawford [Primary Care Provider] - - Critical Care Note This patient required my direct & personal management of CC.: No Attestation - Physician/ JEAN-PAUL Attestation Patient care was provided by Advanced Practice Provider:: No The physician spent face to face time with patient:: Yes Advanced Practice Provider documentation review:: Supervising physician onsite and consulted in the evaluation and care of this patient. The physician did have a face to face encounter with the patient. This chart was documented by the indicated scribe, (Alejandra Zeng Scribe) and accurately reflects the services I performed and decisions made by me, Yvonne Riggs MD, as attested by the provider's signature.
[2018-11-24] MEDS ORDERED: NORCO-7.5 PO PRN (18:38)
[2018-11-24] MEDS ORDERED: POTASSIUM CHLORIDE 80 MEQ in NS 500 ML IV ONE (18:38)
[2018-11-24] MEDS ORDERED: PROTONIX PO ONE (18:38)
[2018-11-24] MEDS ORDERED: LEVAQUIN 750 MG/D5W 750 MG/150 ML IVPB IV ONE (18:38)
[2018-11-24] MEDS ORDERED: NS 500 ML ONE (20:03)
--- NOTE | 2018-11-24 21:15 | HISTORY AND PHYSICAL ---
PRIMARY CARE PHYSICIAN: Dr. Milton Crawford. CHIEF COMPLAINT: Back pain, abdominal pain, sore throat, and numbness to right arm and chest, was diagnosed with colitis 1 week ago, but left AMA. HISTORY OF PRESENTING ILLNESS: This is a 38-year-old female who presents to [facility] who presents to [facility] with multiple complaints, stating that she was in the hospital about a week ago and diagnosed with colitis, but she left AMA, but did receive her antibiotics and steroids and has been taking them as prescribed. Now having some chest pain, back pain, abdominal pain, sore throat, tongue pain, numbness to her right arm and chest. Denied any nausea, vomiting, fever, or chills. Her workup in the emergency room showed a white blood cell count of 18.30, but it is noted that she has been on high-dose steroids and she is also noted to have a potassium of 2.1. Her CT of the abdomen and pelvis showed near resolution of the inflammatory stranding associated with the colon that was seen on the previous study with only a small amount of residual stranding near the hepatic flexure on the right, so she is being admitted for further evaluation and treatment. PAST MEDICAL HISTORY: Recurrent melanoma status post excision of the right arm x2, GERD, hypertension, hypothyroidism, and colitis. PAST SURGICAL HISTORY: The melanoma excision from her arm x2, cholecystectomy, hysterectomy, tonsillectomy, and a section. SOCIAL HISTORY: She currently lives with her , is a former smoker. Denies any alcohol or illicit drug use. ALLERGIES: Ipratropium bromide, penicillin, and bismuth subsalicylate. HOME MEDICATIONS: 1. She will continue her [place] 7.5 one p.o. t.i.d. p.r.n. 2. We will hold Levaquin 500 mg p.o. daily. 3. Continue levothyroxine 50 mcg p.o. q.a.m. 4. Flagyl 500 mg p.o. q.8 hours. 5. Hold her ondansetron ODT 4 mg p.o. q.6 hours, 6. Hold her pantoprazole 40 mg p.o. b.i.d. 7. Continue her prednisone 25 mg p.o. q.p.m. and 75 mg p.o. q.a.m. 8. Hold her sodium bicarbonate 650 mg p.o. b.i.d. LABORATORY DATA: Showed a white blood cell count of 18.380, hemoglobin 13.9, hematocrit 40.9, platelets 320,000. Sodium 137, potassium 2.1, chloride 95, CO2 of 29, BUN of 4, creatinine 0.6. Glucose 99. Urinalysis was negative. IMAGING DATA: CT of the abdomen and pelvis showed near resolution of the inflammatory stranding associated with the colon that was seen on the previous study with only a small amount of residual stranding near the hepatic flexure on the right. Increase in size of the left ovarian cyst seen on the previous study, and development of a larger left ovarian cyst measuring up to 5.4 cm. Otherwise, abdomen and pelvis are essentially stable. EKG with normal sinus rhythm at 84. REVIEW OF SYSTEMS: She denied any fever, chills, blurred vision. She was positive for chest pain, back pain, abdominal pain, sore throat, tongue pain, and numbness to her right arm and chest. Denied any burning or hurting with urination. PHYSICAL EXAMINATION: VITAL SIGNS: On arrival, she had a temperature of 98 degrees, pulse 84, respirations 18, blood pressure 118/71, saturating 98% on room air. GENERAL: This is a 38-year-old female who is sitting up in the bed, drinking water and answers questions appropriately. HEENT: Normocephalic, atraumatic. Normal ENT inspection. Oropharynx and nares are clear. Eyes: Pupils are equal, round, reactive to light and accommodation. Extraocular movements are intact. NECK: Normal inspection. Normal range of motion. LUNGS: Clear to auscultation bilaterally with equal lung expansion. Chest wall movement. HEART: With regular rate and rhythm. No murmurs, rubs, or gallops. ABDOMEN: Soft, nontender, nondistended. Bowel sounds are present x4 quadrants. MUSCULOSKELETAL: She has 5/5 strength x4 extremities. NEUROLOGICAL: The cranial nerves 2-12 appear grossly intact. ASSESSMENT: 1. Hypokalemia. 2. Recent colitis with a CT of the abdomen and pelvis showing near resolution. 3. Leukocytosis, most likely secondary to steroid use. PLAN: She will be admitted to the medical unit. She was given potassium 40 mEq p.o. x1. We will give her 80 mEq IV x1, Levaquin 750 mg IV x1. Continue home medications. Continue her prednisone from home dosage. Give her a GI soft diet. [place] 7.5 p.o. t.i.d. p.r.n., and recheck a BMP in the morning, and placed on telemetry. Further orders after seen by attending. Dictated by LANETTE Steiner for Bari Brown MD cc: LANETTE Steiner MD Agree with the above. the following is my own face to face assessment. patient with likely IBD recently discharged on abx and steroids for colitis. was getting infusion of potassium at [facility] when she began having odd parasthesias which spread across her body. they resolved spontaneously. potassium remains quite low. strength full on exam. reflexes 2+. will replete potassium and monitor. MTDD
[2018-11-24] MEDS: ZOFRAN IV PRN (21:54)
[2018-11-24] MEDS: FLAGYL PO SCH (22:27)
[2018-11-25] MEDS: ZOFRAN IV PRN ×4 (02:12→21:51)
[2018-11-25] MEDS: SYNTHROID PO SCH ×2 (05:54→06:01)
[2018-11-25] MEDS: FLAGYL PO SCH ×3 (05:54→21:45)
[2018-11-25 06:54] LABS: BASO# 0.03 X1000 (0.0-0.2); BASO% 0.3 % (0.0-0.8); EOS# 0.55 X1000 (0.0-0.7); EOS% 4.9 % (0.0-10.0); HEMOGLOBIN 13.4 g/dL (12.0-16.0); IMM GRAN# 0.17 X1000 (0.0-0.04); IMM GRAN% 1.5 % (0.0-0.5); LYMPH% 25.9 % (20.5-51.1); MCH 30.3 PG (27-31); MCHC 34.4 g/dL (33-37); MCV 88.2 FL (81-99); MONO# 1.06 X1000 (0.11-0.59); MONO% 9.5 % (1.7-9.3); MPV 9.7 FL (7.4-10.4); NEUT# 6.48 X1000 (1.4-6.5); NEUT% 57.9 % (42.2-75.2); PLT 274 X1000 (130-400); RBC 4.42 XMIL (4.2-5.4); RDW 16.1 % (11.5-14.5); WBC 11.19 X1000 (4.8-10.8)
[2018-11-25 07:22] LABS: AGAP 13; BUN 3 mg/dL (8-22); CALCIUM 8.5 mg/dL (8.8-10.2); CHLORIDE 99 mmol/L (98-107); COSMO 275; CREATININE 0.6 mg/dL (0.5-0.9); ESTIMATED GFR > 60; GLUCOSE 90 mg/dL (70-104); SODIUM 140 mmol/L (136-145); TCO2 28 mmol/L (25-35)
[2018-11-25 07:23] LABS: POTASSIUM 2.4 mmol/L (3.5-5.1)
[2018-11-25] MEDS ORDERED: POTASSIUM CHLORIDE 80 MEQ in NS 500 ML IV ONE (07:30)
[2018-11-25] MEDS: PREDNISONE PO SCH (10:36)
[2018-11-25] MEDS: PROTONIX PO SCH (15:54)
[2018-11-25] MEDS ORDERED: PREDNISONE PO SCH (16:00)
--- NOTE | 2018-11-25 17:44 | PROGRESS NOTE ---
DATE: 11/25/2018 INTERVAL HISTORY: Patient reports resolution of her paresthesias. Had vomiting after trying to take p.o. potassium, but no other nausea or vomiting. No further paresthesias with IV potassium here, but did have burning and the rate of repletion had to be slowed down. Still with mild global weakness which is somewhat improved with the improvement in her potassium. Still with some reflux symptoms. REVIEW OF SYSTEMS: Twelve point review of systems negative except as per interval history. LABS: WBC 11.1, hemoglobin 13.4, hematocrit 39, platelets 274,000. Sodium 140, potassium 2.4, BUN 3, creatinine 0.6. VITAL SIGNS: T-max 98.7 degrees, pulse 79, respirations 12, blood pressure 141/80, O2 saturation 95% on room air. PHYSICAL EXAMINATION: General: No acute distress. Vital signs: As above. HEENT: Normocephalic, atraumatic. Moist mucous membranes. No cervical adenopathy. Cardiovascular: Regular rate and rhythm. No murmurs noted. Pulmonary: Clear to auscultation bilaterally. Abdomen: Soft, nontender, nondistended, but obese. Bowel sounds positive. Extremities: Peripheral pulses intact. No clubbing or cyanosis. Neurologic: Cranial nerves grossly intact. Mild weakness throughout but no focal deficits. Psychiatric: Normal mood and affect. Awake, alert, oriented x3. Skin: No new rashes or lesions identified. ASSESSMENT AND PLAN: 1. Severe hypokalemia, generalized weakness. Patient with severe hypokalemia and generalized weakness. Weakness improving somewhat with improvement in hypokalemia, but still quite low. Potassium 2.1 on admission, up to 2.4 after 120 mEq of potassium. Giving another 80 this morning with recheck this evening. Suspect we will have to give her more this evening. If the patient's potassium continues to improve, then likely discharge tomorrow. The patient has had difficulty with taking p.o. potassium replacement. Reports vomiting after attempting to ingest potassium on multiple occasions. 2. Recent colitis. Favored to be inflammatory, but will finish previously prescribed course of antibiotics. Continue steroid taper. Much improved on CT. 3. Gastroesophageal reflux disease. Continue Protonix. 4. Morbid obesity. Patient counseled on diet and exercise. 5. Hypothyroidism. TSH pending. Continue home Synthroid.
--- NOTE | 2018-11-25 20:26 | HEMO/ONC CONSULTATION ---
DATE: 11/25/2018 CONSULTATION REQUESTED BY: Hospitalist service. REASON FOR CONSULTATION: Consultation is for patient known. HISTORY OF PRESENT ILLNESS: Ms. Boo is a 38-year-old, female who is known to us as we are currently treating her for metastatic melanoma. She was actually in our office on 11/23/2018 for evaluation. She had recently been in the hospital for colitis. According to records, she left AMA and came to our office feeling a little sluggish. She was on antibiotics and p.o. steroids. Her diarrhea, nausea and vomiting were improving. We checked her labs that she did have a low potassium level. She was asymptomatic so we decided to replete the potassium as an outpatient. She came in on 11/24/2018 to our office for repeat potassium treatment and reported to us that she had tingling in her chest, and we advised her to go to the emergency room for further evaluation. She has subsequently been admitted to the hospital for evaluation and treatment. PAST MEDICAL HISTORY: 1. Recurrent, metastatic melanoma status post local excision. She was on Opdivo. She developed colitis and Opdivo has been held since that time. 2. GERD. 3. Hypertension. 4. Hypothyroidism. PAST SURGICAL HISTORY: 1. Melanoma excision x2 from her arm. 2. Cholecystectomy. 3. Hysterectomy. 4. Tonsillectomy. 5. section. SOCIAL HISTORY: Patient currently lives with her and children. She is a former smoker. She denies any alcohol or illicit drug use. FAMILY HISTORY: Negative for any cancer. REVIEW OF SYSTEMS: Twelve-point review of systems has been completed and is negative except for what is expressed in the HPI. PHYSICAL EXAMINATION: Vital Signs: Temperature 98.0 degrees, heart rate 79, respirations 12, blood pressure 141/80, O2 saturation 95% on room air. General: This is a female lying in hospital bed in no acute distress. Her daughter is at bedside. Head: Normocephalic, atraumatic. Eyes: Pupils equal, round, reactive. Ears, nose, throat, neck, mouth: Oral mucosa is normal. Cardiovascular: S1, S2 heard. No murmurs, gallops or rubs appreciated. Respiratory: Chest is clear. Gastrointestinal: Abdomen is soft. Musculoskeletal: No bony abnormalities. Extremities: Some trace bilateral extremity edema noted. Neurologic: Patient is alert and oriented with no focal motor deficits. LABS AND STUDIES: White blood cells today are 11.19, hemoglobin 13.4, platelet count 274,000. Sodium 140, potassium 2.4, BUN 3, creatinine 0.6, glucose is 90. Abdominal and pelvic CT shows near resolution of the inflammatory stranding associated with the colon, increase in the left ovarian cyst. Otherwise abdomen and pelvis are essentially stable. ASSESSMENT AND PLAN: 1. Recurrent melanoma. Patient was previously receiving Opdivo but developed colitis. Opdivo has been held and will be held indefinitely. Plan will be for us to follow up with the patient once she is discharged, and we will discuss further treatment planning at that time. 2. Colitis. Seems to be pretty much resolved. Continue current management per the primary team. The patient will need to continue on steroids for quite some time. We recommend a 6-week slow taper off of the steroids in order to adequately treat her immune-mediated colitis. She is currently on prednisone 100 mg per day. 3. Hypokalemia. Continue repletion per the primary team. Levels are improving. 4. Nausea and vomiting. Continue p.r.n. antiemetics. 5. Pain. Seems to be well managed currently. Continue current management. We want thank you for consulting us on Ms. oBo. We will continue to follow along and adjust our treatment plan per her hospital course. Dictated by JOHNNY Barriga for Edita Fong MD cc: Edita Fong MD I have seen and examined the patient and agree with the above note which reflects my history, physical examination, assessment and plan. Edita MOREL
[2018-11-25 21:32] LABS: AGAP 12; BUN 3 mg/dL (8-22); CALCIUM 8.9 mg/dL (8.8-10.2); CHLORIDE 103 mmol/L (98-107); COSMO 280; CREATININE 0.6 mg/dL (0.5-0.9); ESTIMATED GFR > 60; GLUCOSE 264 mg/dL (70-104); POTASSIUM 3.6 mmol/L (3.5-5.1); SODIUM 137 mmol/L (136-145); TCO2 22 mmol/L (25-35)
[2018-11-25] MEDS: PHENERGAN PO PRN (21:51)
[2018-11-26] MEDS: ZOFRAN IV PRN (06:07)
[2018-11-26] MEDS: PROTONIX PO SCH (06:08)
[2018-11-26] MEDS: SYNTHROID PO SCH (06:08)
[2018-11-26] MEDS: FLAGYL PO SCH (06:08)
[2018-11-26] MEDS: PHENERGAN PO PRN (06:08)
[2018-11-26 06:46] LABS: AGAP 10; BUN 4 mg/dL (8-22); CHLORIDE 102 mmol/L (98-107); COSMO 275; CREATININE 0.6 mg/dL (0.5-0.9); GLUCOSE 146 mg/dL (70-104); POTASSIUM 3.5 mmol/L (3.5-5.1); SODIUM 138 mmol/L (136-145); TCO2 26 mmol/L (25-35)
[2018-11-26 06:47] LABS: CALCIUM 9.1 mg/dL (8.8-10.2); ESTIMATED GFR > 60
[2018-11-26 07:31] VITALS: BP 114/73
[2018-11-26] MEDS ORDERED: KLOR-CON PO SCH (08:15)
[2018-11-26] MEDS ORDERED: KLOR-CON PO ONE (08:40)
[2018-11-26] MEDS ORDERED: POTASSIUM CHLORIDE 20 MEQ/SWI 20 MEQ/100 ML IVPB IV SCH (09:00)
[2018-11-26] MEDS: PREDNISONE PO SCH (09:24)
--- NOTE | 2018-11-26 22:28 | DISCHARGE SUMMARY ---
ADMISSION DATE: 11/24/2018 DISCHARGE DATE: 11/26/2018 DISCHARGE DISPOSITION: Home. DISCHARGE CONDITION: Hemodynamically stable, alert and oriented x3. She is denying any nausea, vomiting, abdominal pain or diarrhea. She does have loose bowel movements, but that is normal for her. She feels that she does not have abdominal pain. DISCHARGE DIAGNOSES: 1. Severe hypokalemia in the setting of nausea, vomiting and diarrhea. 2. 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 3. Steroid-induced leukocytosis. OTHER DIAGNOSES: 1. Hypothyroidism. 2. Morbid obesity. 3. Chronic gastroesophageal reflux disease. 4. Metastatic melanoma. DISCHARGE MEDICATIONS: [place] 7.5, one tablet t.i.d. p.r.n. for pain; levothyroxine 50 mcg daily; metronidazole 500 mg every 8 hours for 3 more days; levofloxacin 500 mg daily for 3 more days; prednisone 75 mg in the morning time and 25 mg in the nighttime daily, dosing of which should be tapered according to Oncology recommendations outpatient; pantoprazole 40 mg b.i.d. to prevent steroid-induced stress ulcer. PHYSICAL EXAMINATION: At the time of discharge, temperature 97.4 degrees, pulse 73, respiratory rate 20, blood pressure 114/73, saturating 98% on room air. General: Does not appear in any acute distress. Oral cavity is moist. Air entry bilaterally equal. No wheeze, rhonchi or crackles. S1, S2 are normal. No murmur, rub or gallop. Abdomen is soft, nontender. No lower extremity edema. The patient is alert and oriented x3. LABORATORY DATA: Significant labs during hospital admission and discharge: Her WBC was 18,000 on admission which had decreased to 11,000 at the time of discharge, hemoglobin 13.4, platelets 274,000. Her potassium was 2.1 at the time of presentation, which was 3.5 at the time of discharge. She was given 40 mEq of potassium tablet, 1 more dose. Her BUN is 4, creatinine is 0.6. Her TSH was 5.11. She was advised to follow up with her regular doctor. DIAGNOSTIC DATA: Significant imaging during hospital admission: Abdomen and pelvis CT had suggested near-resolution of inflammatory stranding associated with colon on the previous study, with only small amount of residual stranding near hepatic flexure on the right. HOSPITAL COURSE SUMMARY: Ms. Boo is a 38-year-old lady with past history of metastatic melanoma. She was on Opdivo treatment outpatient and was recently admitted for immune checkpoint inhibitor-induced colitis, and had left against medical advice. She was sent back to the emergency room 2 days after her [id number] discharge for chief complaints of back pain, abdominal pain and numbness of the right arm and chest. She was found to have severe hypokalemia with potassium of 2.1. She was admitted for further management. Her hypokalemia was thought to be secondary to her nausea, vomiting and diarrhea that she was experiencing on previous admission, though she had left against medical advice on antibiotics and steroids. During this hospital admission she was treated with intravenous and p.o. potassium, which she tolerated well. At the time of discharge, the patient's potassium was in acceptable range at 3.5, and an additional 40 mEq of potassium was given to her. She was provided instructions about completing antibiotics course for her recent colitis for 3 more days; continue steroids as per Oncology as an outpatient. At the time of discharge all of her questions were answered. More than 30 minutes was spent in discharging this patient. cc: Adria Dai MD
== END 2018-11-26 09:41 | disposition home or self-care (01) ==
LOC: ED 12:03 → INTOOBSV 18:20 → SUATTDRO 18:20 → 4N 18:20
PROVIDERS: ATTEND Internal Medicine
CPT/HCPCS: 74177; 80048; 80053; 81001; 83735; 84443; 85025; 93005; 96360; 96361; 99285; A9270; J1956; J2405; J3480; J7030; J7040; J7506; J7512; Q9967